=== PATIENT | female | born 1970 | race Caucasian/White ===

== ENCOUNTER 2018-11-23 08:35 | Day surgery (SDC) | payer BC ==
[~2018-11-23 08:35] MED LIST: CLON.5 PO; Glucose4 GM PO; Lomotil Tablet1 EACH PO
== END 2018-11-23 22:38 | disposition home or self-care (01) ==
LOC: RAD 08:35
DX: R92.0 Mammographic microcalcification found on diagnostic imaging of breast (principal)
CPT/HCPCS: 19281

== ENCOUNTER 2018-11-30 07:09 | Day surgery (SDC) | payer BC ==
[~2018-11-30] VITALS: Ht 154.9 cm; Wt 45.9 kg
--- NOTE | 2018-11-30 08:00 | NUR ---
Ambulatory in Day Surgery History, Chart, Medications and Allergies reviewed before start of procedure.Lungs clear T/O to Auscultation. Patient confirms NPO status and agrees with scheduled surgery. Patient reports completing Chlorhexadine shower X2 prior to admission to hospital.Surgical site prepped with 2% Chlorhexidine cloth wipe. Patient States Post-Procedure ride home has been arranged.
--- NOTE | 2018-11-30 08:11 | NUR ---
PT REPORTS 2/10 RIGHT BREAST TENDERNESS. SHE STATES THAT THIS IS A TOLERABLE LEVEL FOR HER.
--- NOTE | 2018-11-30 09:58 | NUR ---
PT AWAKE, ALERT, CONVERSING WITH NURSING STAFF. SITTING UP ON STRETCHER SIPPING ON PO FLUIDS AT THIS TIME. AT BEDSIDE. PT C/O DISCOMFORT TO RIGHT BREAST "BURNING" AND "PRESSURE." RATES PAIN AT 3/10 ON PAIN SCALE.
--- NOTE | 2018-11-30 10:31 | NUR ---
EPISODES OF TACHYCARDIA ON PULSE OX. PLACED ON NEWSPAPER EDITOR AND OBSERVED HR FLUCTUATIONS BETWEEN 90 AND 120. PT STATES "I HAVE A HISTORY OF BENIGN PVC'S AND I SAW A RN ALLERGY 7 YEARS AGO.". PT ASYMPTOMATIC BUT STATES "I CAN FEEL IT WHEN IT HAPPENS." PT STATES THIS IS HER BASELINE AND NO DIFFERENT THAN NORMAL. DENIES CHEST PAIN OR DISCOMFORT ASSOCIATED WITH THIS.
--- NOTE | 2018-11-30 10:42 | NUR ---
REVIEWED DISCHARGE INSTRUCTIONS WITH PATIENT AND , BOTH OF WHOM VERBALIZE UNDERSTANDING OF ALL INSTRUCTIONS GIVEN.
--- NOTE | 2018-11-30 11:04 | NUR ---
PT DC HOME VIA WC WITH TO DRIVE HER. DRESSED SELF WITH MINIMAL ASSISTANCE FROM . IV DC TIP INTACT PRIOR TO DC.
== END 2018-11-30 22:41 | disposition home or self-care (01) ==
LOC: ORSCMMR 07:09 → ORD 08:45 → ORSCMMR 22:41
PROVIDERS: Surgery
PROC: 0HBT0ZZ Excision of Right Breast, Open Approach (ICD-10-PCS; principal; 2018-11-30 08:45)
DX: R92.0 Mammographic microcalcification found on diagnostic imaging of breast (principal)
CPT/HCPCS: 82947; 88307; A9270-GY; J0690; J1100; J1885; J2250; J2405; J2704; J2710; J3010; J7120

== ENCOUNTER 2019-01-24 18:21 | Emergency (ER) | payer BC ==
[~2019-01-24] VITALS: Ht 154.9 cm; Wt 45.4 kg
[2019-01-24 18:41] LABS: Source, Urine Clean Catch
[2019-01-24 18:45] LABS: Appearance, Urine Clear (Clear); Bilirubin, Urine Neg (Neg); Blood, Urine Neg (Neg); Color, Urine Yellow (P-Yellow); Glucose Qualitative, Urine Neg (Neg); Ketones, Urine Neg (Neg); Leukocyte Esterase, Urine Neg (Neg); Nitrite, Urine Neg (Neg); Protein, Urine Neg (Neg); Specific Gravity, Urine 1.015 (1.003-1.022); Urobilinogen, Urine NORM (Normal); pH, Urine 6.5 (5.0-8.0)
[2019-01-24 20:45] LABS: Calcium, Ionized (POC) 1.16 mmol/L (1.10-1.46); Chloride (POC) 104 mmol/L (98-108); Creatinine (POC) 0.7 mg/dL (0.6-1.0); Glucose (ISTAT POC) 88 mg/dL (70-99); Hemoglobin (POC) 14.3 g/dL (12.0-16.0); Potassium (POC) 3.6 mmol/L (3.5-5.5); Sodium (POC) 139 mmol/L (135-148); Total CO2 (POC) 26 mmol/L (21-32)
[2019-01-24] MEDS ORDERED: Magnesium Citr296 ML PO (21:48)
[2019-01-24] MEDS ORDERED: Colace100 MG PO (21:48)
== END 2019-01-24 22:06 | disposition home or self-care (01) ==
LOC: ER 18:21
PROVIDERS: Emergency Medicine
DX: K59.00 Constipation, unspecified (principal); B37.3 Candidiasis of vulva and vagina; N83.202 Unspecified ovarian cyst, left side; Z87.891 Personal history of nicotine dependence; Z88.8 Allergy status to other drugs, medicaments and biological substances; Z88.1 Allergy status to other antibiotic agents; Z88.5 Allergy status to narcotic agent; Z79.899 Other long term (current) drug therapy
CPT/HCPCS: 36415; 74177; 80047; 81003; 85014; 99284-25; Q9967

== ENCOUNTER → 2019-03-30 | Outpatient (CLI) | payer BC ==
[~2019-03-30] MED LIST changes: +Colace100 MG PO; +Magnesium Citr296 ML PO
[2019-03-31 12:02] LABS: Candida species (DNA Probe) Positive (NEGATIVE); G. vaginalis (DNA Probe) Negative (NEGATIVE); T. vaginalis (DNA Probe) Negative (NEGATIVE)
== END | disposition home or self-care (01) ==
LOC: LAB SHORT 09:15 → LAB 09:15
PROVIDERS: Obstetrics & Gynecology
DX: N76.0 Acute vaginitis (principal)
CPT/HCPCS: 87480; 87510; 87660

== ENCOUNTER → 2019-07-29 | Outpatient (CLI) | payer BC | END | disposition home or self-care (01) | LOC: LAB EV 08:30 | DX: K21.9 Gastro-esophageal reflux disease without esophagitis (principal) | CPT/HCPCS: 87338 ==